=== PATIENT | male | born 1970 | race Caucasian/White ===

== ENCOUNTER 2019-03-14 09:28 | Observation (INO) | payer OTHER ==
[2019-03-14] MEDS ORDERED: Nitroglycerin 0.4 MG Tab.SL SL PRN (09:30)
[2019-03-14] MEDS ORDERED: Sodium Chloride 0.9% 10 ML Syringe FLUSH PRN (09:30)
[2019-03-14] MEDS ORDERED: Aspirin 81 MG Tab.Chew PO ONE (09:30)
[2019-03-14] MEDS ORDERED: Sodium Chloride 0.9% 2.5 ML Syringe FLUSH PRN (09:30)
[2019-03-14] MEDS ORDERED: Sodium Chloride 0.9% 1,000 ML IV ONE ×2 (09:30→09:45)
[2019-03-14] MEDS ORDERED: Ondansetron 4 MG/2 ML SDV IVPUSH ONE (09:38)
--- NOTE | 2019-03-14 09:38 | EDM.PDOC ---
ED HPI GENERAL MEDICAL PROBLEM - General Stated Complaint: CHEST PAIN Time Seen by Provider: 03/14/19 09:36 Source of Information: Reports: Patient History Limitations: Reports: No Limitations - History of Present Illness INITIAL COMMENTS - FREE TEXT/NARRATIVE: HISTORY AND PHYSICAL: History of present illness: Patient is a 48-year-old male who presents to the emergency room with complaints of chest pain and syncope. She states she was woken up out of sleep with sharp and severe chest pain/epigastric pain. He continued with this pain, felt diaphoretic, nauseated - he has assumed that this was heartburn. Shortly after he became very dizzy, fell down to his knees and had a syncopal event. Since that time he has been trying to "take it easy" but continues to feel generalized weakness and mild nausea. Upon arrival to the emergency room throughout the triage process he states he is beginning to feel lightheaded and near syncopal again. States his nausea has increased. Reports 2 years ago he was living in [facility] and at that time he did have a full cardiac workup as part of his "routine health maintenance". He believes they did a stress test and echocardiogram which were normal. He has no personal history of heart disease. Nonsmoker. Patient denies any fever, chills, headache, change in vision, neck pain or stiffness. Denies any back pain, shortness of breath or cough. Denies any vomiting, diarrhea, constipation or dysuria. Has not noted any blood in urine or stool. Patient has been eating and drinking appropriately. Review of systems: As per history of present illness and below otherwise all systems reviewed and negative. Past medical history: As per history of present illness and as reviewed below otherwise noncontributory. Surgical history: As per history of present illness and as reviewed below otherwise noncontributory. Social history: See social history for further information Family history: As per history of present illness and as reviewed below otherwise noncontributory. Physical exam: General: Well-developed and well-nourished 48-year-old male. Alert and oriented. Nontoxic appearing and in no acute distress. HEENT: Atraumatic, normocephalic, pupils equal and reactive bilaterally, negative for conjunctival pallor or scleral icterus, mucous membranes moist, TMs normal bilaterally, throat clear, neck supple, nontender, trachea midline. No drooling or trismus noted. No meningeal signs. No hot potato voice noted. Lungs: Clear to auscultation, breath sounds equal bilaterally, chest nontender. Heart: S1S2, regular rate and rhythm without overt murmur Abdomen: Soft, nondistended, nontender. Negative for masses. Negative for costovertebral tenderness. Pelvis is stable and nontender. Skin: Pale, intact, warm, dry. No lesions or rashes noted. Extremities: Atraumatic, moves all extremities per self without difficulty or deficits, negative for cords or calf pain. Neurovascular unremarkable. Neuro: Awake, alert, oriented. Cranial nerves II through XII unremarkable. Cerebellum unremarkable. Motor and sensory unremarkable throughout. Exam nonfocal. Notes: We'll patient was having an IV start he stated he began to feel near syncopal. Blood pressure did drop to the 60s over 40s. IV bolus was initiated. Repeat EKG was completed Blood pressure did come up, and is now within normal limits. He stated after lying flat and receiving IV fluids he did feel some improvement. Lab work is unremarkable. Head CT and chest x-ray show no acute findings. Vital signs remain stable. He continues to be chest pain-free. He states he feels better than he did or his near syncopal events, although still has generalized weakness. Dr Hi was consult did on this case and is agreeable to keeping him for observation. He is down here to evaluate the patient prior to being transferred up to the floor. Patient is aware and agreeable to plan of care. Denies any further questions or concerns at this time. 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 - Related Data Allergies Allergy/AdvReac Type Severity Reaction Status Date / Time No Known Allergies Allergy Verified 03/14/19 09:40 Home Meds: Home Meds . [No Known Home Meds] 03/14/19 [History] ED ROS GENERAL - Review of Systems Review Of Systems: ROS reveals no pertinent complaints other than HPI. ED EXAM, GENERAL - Physical Exam Exam: See Below (See dictation) Course - Vital Signs Last Recorded V/S: Last Vital Signs Temp 97.6 F 03/14/19 09:40 Pulse 87 03/14/19 10:55 Resp 18 03/14/19 10:55 BP 119/68 03/14/19 10:55 Pulse Ox 98 03/14/19 10:55 - Orders/Labs/Meds Orders: Active Orders 24 hr Category Date Time Status Admission Status [Patient Status] [ADT] Stat ADT 03/14/19 11:03 Ordered EKG Documentation Completion [RC] STAT Care 03/14/19 09:30 Active EKG Documentation Completion [RC] STAT Care 03/14/19 09:58 Active DRUG SCREEN, URINE [URCHEM] Stat Lab 03/14/19 10:53 Ordered ESR [SEDIMENTATION RATE AUTO] [HEME] Stat Lab 03/14/19 10:59 Ordered TSH [CHEM] Stat Lab 03/14/19 10:53 Ordered UA RFX EDUARD AND CULT IF INDIC [URIN] Stat Lab 03/14/19 10:53 Ordered Sodium Chloride 0.9% [Normal Saline] 1,000 ml Med 03/14/19 09:30 Active IV STAT Sodium Chloride 0.9% [Saline Flush] Med 03/14/19 09:30 Active 10 ml FLUSH ASDIRECTED PRN Sodium Chloride 0.9% [Saline Flush] Med 03/14/19 09:30 Active 2.5 ml FLUSH ASDIRECTED PRN Saline Lock Insert [OM.PC] Stat Oth 03/14/19 09:30 Ordered Medication Orders Sodium Chloride (Normal Saline) 1,000 mls @ 150 mls/hr IV STAT ONE Stop: 03/14/19 16:09 Last Admin: 03/14/19 09:43 Dose: 150 mls/hr Sodium Chloride (Saline Flush) 10 ml FLUSH ASDIRECTED PRN PRN Reason: Keep Vein Open Last Admin: 03/14/19 09:44 Dose: 10 ml Sodium Chloride (Saline Flush) 2.5 ml FLUSH ASDIRECTED PRN PRN Reason: Keep Vein Open Last Admin: 03/14/19 09:44 Dose: 2.5 ml Labs: Laboratory Tests 03/14/19 03/14/19 Range/Units 09:35 09:35 WBC 13.41 H (4.0-11.0) K/uL RBC 5.41 (4.50-5.90) M/uL Hgb 16.3 (13.0-17.0) g/dL Hct 49.1 (38.0-50.0) % MCV 90.8 (80.0-98.0) fL MCH 30.1 (27.0-32.0) pg MCHC 33.2 (31.0-37.0) g/dL RDW Std Deviation 44.2 (28.0-62.0) fl RDW Coeff of Darlene 13 (11.0-15.0) % Plt Count 229 (150-400) K/uL MPV 10.80 (7.40-12.00) fL Neut % (Auto) 92.1 H (48.0-80.0) % Lymph % (Auto) 2.1 L (16.0-40.0) % [place] % (Auto) 5.0 (0.0-15.0) % Eos % (Auto) 0.7 (0.0-7.0) % Baso % (Auto) 0.1 (0.0-1.5) % Neut # (Auto) 12.3 H (1.4-5.7) K/uL Lymph # (Auto) 0.3 L (0.6-2.4) K/uL [place] # (Auto) 0.7 (0.0-0.8) K/uL Eos # (Auto) 0.1 (0.0-0.7) K/uL Baso # (Auto) 0.0 (0.0-0.1) K/uL Nucleated RBC % 0.0 /100WBC Nucleated RBCs # 0 K/uL Sodium 141 (136-148) mmol/L Potassium 4.5 (3.5-5.1) mmol/L Chloride 105 (98-107) mmol/L Carbon Dioxide 29.4 (21.0-32.0) mmol/L BUN 18 (7.0-18.0) mg/dL Creatinine 1.0 (0.8-1.3) mg/dL Est Cr Clr Drug Dosing 110.91 mL/min Estimated GFR (MDRD) > 60.0 ml/min Glucose 96 (74-106) mg/dL Calcium 9.2 (8.5-10.1) mg/dL Total Bilirubin 0.7 (0.2-1.0) mg/dL AST 16 (15-37) IU/L ALT 27 (14-63) IU/L Alkaline Phosphatase 57 (46-116) U/L Troponin I < 0.050 (0.000-0.056) ng/mL Total Protein 7.5 (6.4-8.2) g/dL Albumin 4.3 (3.4-5.0) g/dL Globulin 3.2 (2.6-4.0) g/dL Albumin/Globulin Ratio 1.3 (0.9-1.6) Lipase 87 (73-393) U/L Meds: Medications Generic Name Dose Route Start Last Admin Trade Name Freq PRN Reason Stop Dose Admin Sodium Chloride 1,000 mls @ 150 mls/hr 03/14/19 09:30 03/14/19 09:43 Normal Saline IV 03/14/19 16:09 150 mls/hr STAT ONE Administration Sodium Chloride 10 ml 03/14/19 09:30 03/14/19 09:44 Saline Flush FLUSH 10 ml ASDIRECTED PRN Administration Keep Vein Open Sodium Chloride 2.5 ml 03/14/19 09:30 03/14/19 09:44 Saline Flush FLUSH 2.5 ml ASDIRECTED PRN Administration Keep Vein Open Discontinued Medications Generic Name Dose Route Start Last Admin Trade Name Freq PRN Reason Stop Dose Admin Aspirin 324 mg 03/14/19 09:30 03/14/19 09:43 Aspirin PO 03/14/19 09:31 324 mg ONETIME ONE Administration Sodium Chloride 1,000 mls @ 999 mls/hr 03/14/19 09:45 03/14/19 09:48 Normal Saline IV 03/14/19 10:45 999 mls/hr STAT ONE Administration Nitroglycerin 0.4 mg 03/14/19 09:30 Nitrostat SL Q5M PRN Chest Pain Ondansetron HCl 4 mg 03/14/19 09:38 03/14/19 09:43 Zofran IVPUSH 03/14/19 09:39 4 mg ONETIME ONE Administration Ondansetron HCl Confirm 03/14/19 09:39 03/14/19 09:44 Zofran Administered 03/14/19 09:40 Not Given Dose 4 mg .ROUTE .STK-MED ONE Departure - Departure Time of Disposition: 10:55 Disposition: Refer to Observation Clinical Impression: Chest pain, rule out acute myocardial infarction Syncope Qualifiers: Syncope type: unspecified Qualified Code(s): R55 - Syncope and collapse Referrals: PCP,Unknown [Primary Care Provider] - - My Orders Last 24 Hours: My Active Orders 03/14/19 09:30 EKG Documentation Completion [RC] STAT Sodium Chloride 0.9% [Normal Saline] 1,000 ml IV STAT Sodium Chloride 0.9% [Saline Flush] 10 ml FLUSH ASDIRECTED PRN Sodium Chloride 0.9% [Saline Flush] 2.5 ml FLUSH ASDIRECTED PRN Saline Lock Insert [OM.PC] Stat 03/14/19 09:58 EKG Documentation Completion [RC] STAT 03/14/19 10:53 DRUG SCREEN, URINE [URCHEM] Stat TSH [CHEM] Stat UA RFX EDUARD AND CULT IF INDIC [URIN] Stat 03/14/19 10:59 ESR [SEDIMENTATION RATE AUTO] [HEME] Stat 03/14/19 11:03 Admission Status [Patient Status] [ADT] Stat - Assessment/Plan Last 24 Hours: My Active Orders 03/14/19 09:30 EKG Documentation Completion [RC] STAT Sodium Chloride 0.9% [Normal Saline] 1,000 ml IV STAT Sodium Chloride 0.9% [Saline Flush] 10 ml FLUSH ASDIRECTED PRN Sodium Chloride 0.9% [Saline Flush] 2.5 ml FLUSH ASDIRECTED PRN Saline Lock Insert [OM.PC] Stat 03/14/19 09:58 EKG Documentation Completion [RC] STAT 03/14/19 10:53 DRUG SCREEN, URINE [URCHEM] Stat TSH [CHEM] Stat UA RFX EDUARD AND CULT IF INDIC [URIN] Stat 03/14/19 10:59 ESR [SEDIMENTATION RATE AUTO] [HEME] Stat 03/14/19 11:03 Admission Status [Patient Status] [ADT] Stat
[2019-03-14] MEDS ORDERED: Ondansetron 4 MG/2 ML SDV ONE (09:39)
[2019-03-14 10:40] LABS: CHLORIDE,CL 105 mmol/L (98-107); SODIUM,NA 141 mmol/L (136-148)
--- NOTE | 2019-03-14 10:40 | CT ---
EXAMINATION: Non contrast CT head. Coronal and sagittal reformats. HISTORY: Pain FINDINGS: No evidence of intra or extra axial hemorrhage, mass, midline shift, hydrocephalus or edema. No hypoattenuation changes in the major vascular territories to suggest acute infarct. No abnormal intracranial calcifications are detected. No evidence of substantial vascular calcifications. Paranasal sinuses and mastoid air cells are well aerated without substantial findings. Pituitary fossa appears unremarkable. Orbits and globes are symmetric. Calvarium is intact. No evidence of skull fracture. IMPRESSION: No acute intracranial findings.
--- NOTE | 2019-03-14 10:41 | CR ---
EXAMINATION: Portable chest radiograph. HISTORY: Chest pain. FINDINGS: The trachea is midline. The cardiomediastinal silhouette is within normal limits. No pulmonary infiltrates, effusions or pneumothorax. Mild hyperinflation and biapical scarring. Osseous structures appear unremarkable. IMPRESSION: No acute cardiopulmonary process.
[2019-03-14] MEDS ORDERED: Acetaminophen 325 MG Tab PO PRN (11:21)
[2019-03-14] MEDS ORDERED: Ondansetron 4 MG/2 ML SDV IVPUSH PRN (11:21)
--- NOTE | 2019-03-14 11:42 | PCM.HP ---
<Erika Mendez M - Last Filed: 03/14/19 12:36> H&P History of Present Illness - General Date of Service: 03/14/19 Admit Problem/Dx: Admission Diagnosis/Problem Admission Diagnosis/Problem Syncope Source of Information: Patient History Limitations: Reports: No Limitations - History of Present Illness Initial Comments - Free Text/Narative: This 48 year old male with no significant pmh presented to the ED today with complaints of epigastric and chest pain along with a syncopal episode. He reports he woke up at 0500 this morning with chest pain, that was sharp and burning, he felt it was like heartburn. He got up to the bathroom, had diarrhea. After he stood up he felt lightheaded, dizzy, diaphoretic. He felt as though he was going to pass out, gt to his knees and ended up passing out for a couple seconds and woke back up. He went back to bed and called around as to what he should do. He eventually decided to come to the ED to be evaluated. He reports he otherwise has been healthy lately. He ate some spicy sausage last night, which is unusual for him, he normally has a bland diet. No shortness of breath, no sinus congestion or upper respiratory illness. 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 He denies drinking energy drinks, has coffee in the morning and then drinks nearly a gallon of water a day. He reports mother has DM and no CAD, father is 86 and is otherwise healthy. He denies tobacco use, no alcohol use and no recreational drug use. He denies home medication usage. No heavy use of NSAIDS. In the ED mild leukocytosis noted, 13,410. BPM WNL. troponin negative. TS h0.61. EKG revealed mild ST elevation in all leads, consider pericarditis, ESR pending. CXR negative. Head CT negative as well. BP noted in the ED 80-119/50- 60s. HR 50-80s. He did become near syncopal in ED, noted to have BP 80/50s, given 2 L NS and BP improved and he is feeling better now, but slightly nauseated. He will be admitted for syncope and chest pain. No PCP in area - Related Data Allergies/Adverse Reactions: Allergies Allergy/AdvReac Type Severity Reaction Status Date / Time No Known Allergies Allergy Verified 03/14/19 09:40 Home Medications: Home Meds . [No Known Home Meds] 03/14/19 [History] Past Medical History HEENT History: Reports: None Cardiovascular History: Reports: None. Denies: CAD, High Cholesterol, Hypertension Respiratory History: Reports: None. Denies: Asthma, COPD Gastrointestinal History: Reports: None. Denies: Bowel Obstruction, Chronic Diarrhea, GERD Genitourinary History: Reports: None. Denies: Chronic Renal Insuffiency Musculoskeletal History: Reports: None Endocrine/Metabolic History: Reports: None. Denies: Diabetes, Type II, Obesity/ BMI 30+ - Infectious Disease History Infectious Disease History: Reports: None Social & Family History - Tobacco Use Smoking Status *Q: Never Smoker - Caffeine Use Caffeine Use: Reports: Coffee - Alcohol Use Alcohol Use History: No - Recreational Drug Use Recreational Drug Use: No H&P Review of Systems - Review of Systems: Review Of Systems: See Below General: Reports: Weakness. Denies: Fever, Chills, Malaise, Fatigue HEENT: Reports: No Symptoms. Denies: Headaches, Sinus Congestion, Sore Throat, Vertigo Pulmonary: Reports: No Symptoms. Denies: Shortness of Breath Cardiovascular: Reports: Lightheadedness, Syncope. Denies: Chest Pain, Orthopnea, Edema Gastrointestinal: Reports: Diarrhea, Nausea. Denies: Abdominal Pain, Black Stool, Bloody Stool, Distension, Melena, Vomiting Genitourinary: Reports: No Symptoms. Denies: Dysuria, Frequency, Burning Musculoskeletal: Reports: No Symptoms Skin: Reports: No Symptoms Psychiatric: Reports: No Symptoms Neurological: Reports: No Symptoms Hematologic/Lymphatic: Reports: No Symptoms Immunologic: Reports: No Symptoms Exam - Exam Exam: See Below - Vital Signs Vital Signs: Last Vital Signs Temp 97.6 F 03/14/19 09:40 Pulse 87 03/14/19 10:55 Resp 18 03/14/19 10:55 BP 119/68 03/14/19 10:55 Pulse Ox 98 03/14/19 10:55 Weight: 185 kg - Exam General: Alert, Oriented, Cooperative Neck: Supple, Trachea Midline Lungs: Clear to Auscultation, Normal Respiratory Effort Cardiovascular: Regular Rate, Regular Rhythm GI/Abdominal Exam: Normal Bowel Sounds, Soft, Non-Tender, No Mass, Other (noted to be frequently swallowing as though nauseated, reports he feels nauseated.) Back Exam: Normal Inspection, Full Range of Motion Extremities: Normal Inspection, Normal Range of Motion, Non-Tender Neuro Extensive - Mental Status: Alert, Oriented x3 Neuro Extensive - Motor, Sensory, Reflexes: CN II-XII Intact Psychiatric: Alert, Normal Affect, Normal Mood - Patient Data Lab Results Last 24 hrs: Laboratory Results - last 24 hr 03/14/19 03/14/19 03/14/19 Range/Units 09:35 09:35 09:35 WBC 13.41 H (4.0-11.0) K/uL RBC 5.41 (4.50-5.90) M/uL Hgb 16.3 (13.0-17.0) g/dL Hct 49.1 (38.0-50.0) % MCV 90.8 (80.0-98.0) fL MCH 30.1 (27.0-32.0) pg MCHC 33.2 (31.0-37.0) g/dL RDW Std Deviation 44.2 (28.0-62.0) fl RDW Coeff of Darlene 13 (11.0-15.0) % Plt Count 229 (150-400) K/uL MPV 10.80 (7.40-12.00) fL Neut % (Auto) 92.1 H (48.0-80.0) % Lymph % (Auto) 2.1 L (16.0-40.0) % Gove % (Auto) 5.0 (0.0-15.0) % Eos % (Auto) 0.7 (0.0-7.0) % Baso % (Auto) 0.1 (0.0-1.5) % Neut # (Auto) 12.3 H (1.4-5.7) K/uL Lymph # (Auto) 0.3 L (0.6-2.4) K/uL Gove # (Auto) 0.7 (0.0-0.8) K/uL Eos # (Auto) 0.1 (0.0-0.7) K/uL Baso # (Auto) 0.0 (0.0-0.1) K/uL Nucleated RBC % 0.0 /100WBC Nucleated RBCs # 0 K/uL Sodium 141 (136-148) mmol/L Potassium 4.5 (3.5-5.1) mmol/L Chloride 105 (98-107) mmol/L Carbon Dioxide 29.4 (21.0-32.0) mmol/L BUN 18 (7.0-18.0) mg/dL Creatinine 1.0 (0.8-1.3) mg/dL Est Cr Clr Drug Dosing 110.91 mL/min Estimated GFR (MDRD) > 60.0 ml/min Glucose 96 (74-106) mg/dL Calcium 9.2 (8.5-10.1) mg/dL Total Bilirubin 0.7 (0.2-1.0) mg/dL AST 16 (15-37) IU/L ALT 27 (14-63) IU/L Alkaline Phosphatase 57 (46-116) U/L Troponin I < 0.050 (0.000-0.056) ng/mL Total Protein 7.5 (6.4-8.2) g/dL Albumin 4.3 (3.4-5.0) g/dL Globulin 3.2 (2.6-4.0) g/dL Albumin/Globulin Ratio 1.3 (0.9-1.6) Lipase 87 (73-393) U/L TSH 3rd Generation 0.61 (0.36-3.74) uIU/mL Result Diagrams: 03/14/19 09:35 03/14/19 09:35 EKG INTERPRETATION Rhythm: NSR P-Wave: Present QRS: Normal ST-T: Elevated (all leads) QT: Normal - Problem List (1) Chest pain, rule out acute myocardial infarction SNOMED Code(s): 41906565 ICD Code: R07.9 - CHEST PAIN, UNSPECIFIED Status: Acute Current Visit: Yes (2) Syncope SNOMED Code(s): 679055139 ICD Code: R55 - SYNCOPE AND COLLAPSE Status: Acute Current Visit: Yes Qualifiers: Syncope type: unspecified Qualified Code(s): R55 - Syncope and collapse Problem List Initiated/Reviewed/Updated: Yes Orders Last 24hrs: Active Orders 24 hr Category Date Time Status Admission Status [Patient Status] [ADT] Stat ADT 03/14/19 11:03 Active EKG Documentation Completion [RC] STAT Care 03/14/19 09:30 Active EKG Documentation Completion [RC] STAT Care 03/14/19 09:58 Active Intake and Output [RC] QSHIFT Care 03/14/19 11:22 Active Orthostatic Vital Signs [RC] ASDIRECTED Care 03/14/19 11:24 Active Oxygen Therapy [RC] PRN Care 03/14/19 11:22 Active Telemetry Monitoring [Cardiac Monitoring] [RC] . Care 03/14/19 11:25 Active DIRECTED Up With Assistance [RC] ASDIRECTED Care 03/14/19 11:21 Active VTE/DVT Education [RC] PER UNIT ROUTINE Care 03/14/19 11:22 Active Vital Signs [RC] Q4H Care 03/14/19 11:22 Active Heart Healthy Diet [DIET] Diet 03/14/19 Lunch Active BASIC METABOLIC PANEL,BMP [CHEM] AM Lab 03/15/19 05:11 Ordered CBC WITH AUTO DIFF [HEME] AM Lab 03/15/19 05:11 Ordered CDIFF TOX A+B [OP] Routine Lab 03/14/19 11:23 Ordered CULTURE STOOL + CAMPY+SHIGATOX [RM] Routine Lab 03/14/19 11:23 Ordered DRUG SCREEN, URINE [URCHEM] Stat Lab 03/14/19 10:53 Ordered ESR [SEDIMENTATION RATE AUTO] [HEME] Stat Lab 03/14/19 10:59 Ordered GLYCOSYLATED HEMOGLOBIN,HGBA1C [CHEM] Routine Lab 03/14/19 09:35 Received LIPID PANEL [CHEM] AM Lab 03/15/19 05:11 Ordered TROPONIN I [CHEM] Q6H Lab 03/14/19 15:30 Ordered TROPONIN I [CHEM] Q6H Lab 03/14/19 21:30 Ordered UA RFX EDUARD AND CULT IF INDIC [URIN] Stat Lab 03/14/19 10:53 Ordered Acetaminophen [Tylenol] Med 03/14/19 11:21 Active 650 mg PO Q4H PRN Alum Hydrox/Mag Hydrox/Simeth [Mag-Al Plus] 15 ml Med 03/14/19 11:21 Ordered Lidocaine 2% [Xylocaine 2% Viscous] 5 ml PO ONETIME Enoxaparin [Lovenox] Med 03/14/19 11:30 Active 40 mg SUBCUT Q24H Ondansetron [Zofran] Med 03/14/19 11:21 Ordered 4 mg IVPUSH Q4H PRN Pantoprazole [ProTONIX IV] 40 mg Med 03/14/19 11:30 Ordered Sodium Chloride 0.9% [Normal Saline] 100 ml IVPUSH Q24H Sodium Chloride 0.9% [Normal Saline] 1,000 ml Med 03/14/19 11:30 Ordered IV ASDIRECTED Sodium Chloride 0.9% [Normal Saline] 1,000 ml Med 03/14/19 09:30 Active IV STAT Sodium Chloride 0.9% [Saline Flush] Med 03/14/19 09:30 Active 10 ml FLUSH ASDIRECTED PRN Sodium Chloride 0.9% [Saline Flush] Med 03/14/19 09:30 Active 2.5 ml FLUSH ASDIRECTED PRN Isolation [COMM] Stat Ot 03/14/19 11:24 Ordered Saline Lock Insert [OM.PC] Stat Ot 03/14/19 09:30 Ordered Resuscitation Status Routine Resus Stat 03/14/19 11:21 Ordered Medication Orders Acetaminophen (Tylenol) 650 mg PO Q4H PRN PRN Reason: Pain (mild 1-3) Al Hydroxide/Mg Hydroxide 15 (ml/ Lidocaine HCl 5 ml) 0 ml PO ONETIME ONE Stop: 03/14/19 11:22 Enoxaparin Sodium (Lovenox) 40 mg SUBCUT Q24H [facility]ISCO Sodium Chloride (Normal Saline) 1,000 mls @ 150 mls/hr IV STAT ONE Stop: 03/14/19 16:09 Last Infusion: 03/14/19 09:45 Dose: 999 mls/hr Admin: 03/14/19 09:43 Dose: 150 mls/hr Pantoprazole Sodium 40 mg/ (Sodium Chloride) 100 mls @ 10 mls/hr IVPUSH Q24H [facility] Sodium Chloride (Normal Saline) 1,000 mls @ 150 mls/hr IV ASDIRECTED [facility]CO Ondansetron HCl (Zofran) 4 mg IVPUSH Q4H PRN PRN Reason: Nausea Sodium Chloride (Saline Flush) 10 ml FLUSH ASDIRECTED PRN PRN Reason: Keep Vein Open Last Admin: 03/14/19 09:44 Dose: 10 ml Sodium Chloride (Saline Flush) 2.5 ml FLUSH ASDIRECTED PRN PRN Reason: Keep Vein Open Last Admin: 03/14/19 09:44 Dose: 2.5 ml Assessment/Plan Comment:: This 48 year old male admitted with syncope and chest pain 1. Syncope: suspect vasovagal reflex syncope or Orthostatic hypotension. Monitor Orthostatic BPs. Reports his BP is normally "low". Monitor on telemetry for cardiac causes of syncope. Continue IVFs for now. recheck labs in am, leukocytosis may be related to dehydration. 2. Chest pain: Telemetry. trend troponins. Check A1c and Lipid panel. Low risk. Give Protonix and GI cocktail monitor. Outpatient stress test to be ordered on discharge. ESR not elevated. 3. Diarrhea: stool studies and hemoccult. VTE prophylaxis: Dispo: 1 day <Mayito Hi - Last Filed: 03/14/19 16:29> H&P History of Present Illness - General Admit Problem/Dx: Admission Diagnosis/Problem Admission Diagnosis/Problem Syncope I have examined the patient independently of Erika Mendez CNP. I have discussed the case with her. I have reviewed and agree with the examination and plan as outlined by her. Please see orders. Exam - Vital Signs Vital Signs: Last Vital Signs Temp 37.0 C 03/14/19 12:00 Pulse 84 03/14/19 12:00 Resp 18 03/14/19 12:00 BP 119/68 03/14/19 10:55 Pulse Ox 98 03/14/19 12:00 Orthostatic Blood Pressure [ 114/67 Standing] Orthostatic Blood Pressure [ 116/69 Supine] Orthostatic Blood Pressure [ 112/73 Sitting] - Patient Data Lab Results Last 24 hrs: Laboratory Results - last 24 hr 03/14/19 03/14/19 03/14/19 Range/Units 09:35 09:35 09:35 WBC 13.41 H (4.0-11.0) K/uL RBC 5.41 (4.50-5.90) M/uL Hgb 16.3 (13.0-17.0) g/dL Hct 49.1 (38.0-50.0) % MCV 90.8 (80.0-98.0) fL MCH 30.1 (27.0-32.0) pg MCHC 33.2 (31.0-37.0) g/dL RDW Std Deviation 44.2 (28.0-62.0) fl RDW Coeff of Darlene 13 (11.0-15.0) % Plt Count 229 (150-400) K/uL MPV 10.80 (7.40-12.00) fL Neut % (Auto) 92.1 H (48.0-80.0) % Lymph % (Auto) 2.1 L (16.0-40.0) % Gove % (Auto) 5.0 (0.0-15.0) % Eos % (Auto) 0.7 (0.0-7.0) % Baso % (Auto) 0.1 (0.0-1.5) % Neut # (Auto) 12.3 H (1.4-5.7) K/uL Lymph # (Auto) 0.3 L (0.6-2.4) K/uL Gove # (Auto) 0.7 (0.0-0.8) K/uL Eos # (Auto) 0.1 (0.0-0.7) K/uL Baso # (Auto) 0.0 (0.0-0.1) K/uL Nucleated RBC % 0.0 /100WBC Nucleated RBCs # 0 K/uL ESR (0-14) mm/hr Sodium 141 (136-148) mmol/L Potassium 4.5 (3.5-5.1) mmol/L Chloride 105 (98-107) mmol/L Carbon Dioxide 29.4 (21.0-32.0) mmol/L BUN 18 (7.0-18.0) mg/dL Creatinine 1.0 (0.8-1.3) mg/dL Est Cr Clr Drug Dosing 110.91 mL/min Estimated GFR (MDRD) > 60.0 ml/min Glucose 96 (74-106) mg/dL Hemoglobin A1c (4.5-6.2) % Calcium 9.2 (8.5-10.1) mg/dL Total Bilirubin 0.7 (0.2-1.0) mg/dL AST 16 (15-37) IU/L ALT 27 (14-63) IU/L Alkaline Phosphatase 57 (46-116) U/L Troponin I < 0.050 (0.000-0.056) ng/mL Total Protein 7.5 (6.4-8.2) g/dL Albumin 4.3 (3.4-5.0) g/dL Globulin 3.2 (2.6-4.0) g/dL Albumin/Globulin Ratio 1.3 (0.9-1.6) Lipase 87 (73-393) U/L TSH 3rd Generation 0.61 (0.36-3.74) uIU/mL Urine Color Urine Appearance Urine pH (5.0-8.0) Ur Specific [place] (1.001-1.035) Urine Protein (NEGATIVE) mg/dL Urine Glucose (UA) (NEGATIVE) mg/dL Urine Ketones (NEGATIVE) mg/dL Urine Occult Blood (NEGATIVE) Urine Nitrite (NEGATIVE) Urine Bilirubin (NEGATIVE) Urine Urobilinogen (<2.0) EU/dL Ur Leukocyte Esterase (NEGATIVE) Urine Opiates Screen (NEGATIVE) Ur Oxycodone Screen (NEGATIVE) Urine Methadone Screen (NEGATIVE) Ur Barbiturates Screen (NEGATIVE) Ur Phencyclidine Scrn (NEGATIVE) Ur Amphetamine Screen (NEGATIVE) U Methamphetamines Scrn (NEGATIVE) U Benzodiazepines Scrn (NEGATIVE) U Cocaine Metab Screen (NEGATIVE) U Marijuana (THC) Screen (NEGATIVE) 03/14/19 03/14/19 03/14/19 Range/Units 09:35 09:35 13:05 WBC (4.0-11.0) K/uL RBC (4.50-5.90) M/uL Hgb (13.0-17.0) g/dL Hct (38.0-50.0) % MCV (80.0-98.0) fL MCH (27.0-32.0) pg MCHC (31.0-37.0) g/dL RDW Std Deviation (28.0-62.0) fl RDW Coeff of Darlene (11.0-15.0) % Plt Count (150-400) K/uL MPV (7.40-12.00) fL Neut % (Auto) (48.0-80.0) % Lymph % (Auto) (16.0-40.0) % Gove % (Auto) (0.0-15.0) % Eos % (Auto) (0.0-7.0) % Baso % (Auto) (0.0-1.5) % Neut # (Auto) (1.4-5.7) K/uL Lymph # (Auto) (0.6-2.4) K/uL Gove # (Auto) (0.0-0.8) K/uL Eos # (Auto) (0.0-0.7) K/uL Baso # (Auto) (0.0-0.1) K/uL Nucleated RBC % /100WBC Nucleated RBCs # K/uL ESR 1 (0-14) mm/hr Sodium (136-148) mmol/L Potassium (3.5-5.1) mmol/L Chloride (98-107) mmol/L Carbon Dioxide (21.0-32.0) mmol/L BUN (7.0-18.0) mg/dL Creatinine (0.8-1.3) mg/dL Est Cr Clr Drug Dosing mL/min Estimated GFR (MDRD) ml/min Glucose (74-106) mg/dL Hemoglobin A1c 5.7 (4.5-6.2) % Calcium (8.5-10.1) mg/dL Total Bilirubin (0.2-1.0) mg/dL AST (15-37) IU/L ALT (14-63) IU/L Alkaline Phosphatase (46-116) U/L Troponin I (0.000-0.056) ng/mL Total Protein (6.4-8.2) g/dL Albumin (3.4-5.0) g/dL Globulin (2.6-4.0) g/dL Albumin/Globulin Ratio (0.9-1.6) Lipase (73-393) U/L TSH 3rd Generation (0.36-3.74) uIU/mL Urine Color YELLOW Urine Appearance CLEAR Urine pH 6.5 (5.0-8.0) Ur Specific [place] 1.020 (1.001-1.035) Urine Protein NEGATIVE (NEGATIVE) mg/dL Urine Glucose (UA) NEGATIVE (NEGATIVE) mg/dL Urine Ketones 15 H (NEGATIVE) mg/dL Urine Occult Blood NEGATIVE (NEGATIVE) Urine Nitrite NEGATIVE (NEGATIVE) Urine Bilirubin NEGATIVE (NEGATIVE) Urine Urobilinogen 0.2 (<2.0) EU/dL Ur Leukocyte Esterase NEGATIVE (NEGATIVE) Urine Opiates Screen (NEGATIVE) Ur Oxycodone Screen (NEGATIVE) Urine Methadone Screen (NEGATIVE) Ur Barbiturates Screen (NEGATIVE) Ur Phencyclidine Scrn (NEGATIVE) Ur Amphetamine Screen (NEGATIVE) U Methamphetamines Scrn (NEGATIVE) U Benzodiazepines Scrn (NEGATIVE) U Cocaine Metab Screen (NEGATIVE) U Marijuana (THC) Screen (NEGATIVE) 03/14/19 03/14/19 Range/Units 13:05 14:32 WBC (4.0-11.0) K/uL RBC (4.50-5.90) M/uL Hgb (13.0-17.0) g/dL Hct (38.0-50.0) % MCV (80.0-98.0) fL MCH (27.0-32.0) pg MCHC (31.0-37.0) g/dL RDW Std Deviation (28.0-62.0) fl RDW Coeff of Darlene (11.0-15.0) % Plt Count (150-400) K/uL MPV (7.40-12.00) fL Neut % (Auto) (48.0-80.0) % Lymph % (Auto) (16.0-40.0) % Gove % (Auto) (0.0-15.0) % Eos % (Auto) (0.0-7.0) % Baso % (Auto) (0.0-1.5) % Neut # (Auto) (1.4-5.7) K/uL Lymph # (Auto) (0.6-2.4) K/uL Gove # (Auto) (0.0-0.8) K/uL Eos # (Auto) (0.0-0.7) K/uL Baso # (Auto) (0.0-0.1) K/uL Nucleated RBC % /100WBC Nucleated RBCs # K/uL ESR (0-14) mm/hr Sodium (136-148) mmol/L Potassium (3.5-5.1) mmol/L Chloride (98-107) mmol/L Carbon Dioxide (21.0-32.0) mmol/L BUN (7.0-18.0) mg/dL Creatinine (0.8-1.3) mg/dL Est Cr Clr Drug Dosing mL/min Estimated GFR (MDRD) ml/min Glucose (74-106) mg/dL Hemoglobin A1c (4.5-6.2) % Calcium (8.5-10.1) mg/dL Total Bilirubin (0.2-1.0) mg/dL AST (15-37) IU/L ALT (14-63) IU/L Alkaline Phosphatase (46-116) U/L Troponin I < 0.050 (0.000-0.056) ng/mL Total Protein (6.4-8.2) g/dL Albumin (3.4-5.0) g/dL Globulin (2.6-4.0) g/dL Albumin/Globulin Ratio (0.9-1.6) Lipase (73-393) U/L TSH 3rd Generation (0.36-3.74) uIU/mL Urine Color Urine Appearance Urine pH (5.0-8.0) Ur Specific [place] (1.001-1.035) Urine Protein (NEGATIVE) mg/dL Urine Glucose (UA) (NEGATIVE) mg/dL Urine Ketones (NEGATIVE) mg/dL Urine Occult Blood (NEGATIVE) Urine Nitrite (NEGATIVE) Urine Bilirubin (NEGATIVE) Urine Urobilinogen (<2.0) EU/dL Ur Leukocyte Esterase (NEGATIVE) Urine Opiates Screen NEGATIVE (NEGATIVE) Ur Oxycodone Screen NEGATIVE (NEGATIVE) Urine Methadone Screen NEGATIVE (NEGATIVE) Ur Barbiturates Screen NEGATIVE (NEGATIVE) Ur Phencyclidine Scrn NEGATIVE (NEGATIVE) Ur Amphetamine Screen NEGATIVE (NEGATIVE) U Methamphetamines Scrn NEGATIVE (NEGATIVE) U Benzodiazepines Scrn NEGATIVE (NEGATIVE) U Cocaine Metab Screen NEGATIVE (NEGATIVE) U Marijuana (THC) Screen NEGATIVE (NEGATIVE) Result Diagrams: 03/14/19 09:35 03/14/19 09:35 Orders Last 24hrs: Active Orders 24 hr Category Date Time Status Admission Status [Patient Status] [ADT] Stat ADT 03/14/19 11:03 Active EKG Documentation Completion [RC] STAT Care 03/14/19 09:30 Active EKG Documentation Completion [RC] STAT Care 03/14/19 09:58 Active Intake and Output [RC] Q12H Care 03/14/19 11:22 Active Orthostatic Vital Signs [RC] ASDIRECTED Care 03/14/19 11:24 Active Oxygen Therapy [RC] PRN Care 03/14/19 11:22 Active Telemetry Monitoring [Cardiac Monitoring] [RC] Q8H Care 03/14/19 11:25 Active Up With Assistance [RC] ASDIRECTED Care 03/14/19 11:21 Active VTE/DVT Education [RC] PER UNIT ROUTINE Care 03/14/19 11:22 Active Vital Signs [RC] Q4H Care 03/14/19 11:22 Active Heart Healthy Diet [DIET] Diet 03/14/19 Lunch Active BASIC METABOLIC PANEL,BMP [CHEM] AM Lab 03/15/19 05:11 Ordered CBC WITH AUTO DIFF [HEME] AM Lab 03/15/19 05:11 Ordered CDIFF TOX A+B [OP] Routine Lab 03/14/19 11:23 Ordered CULTURE STOOL + CAMPY+SHIGATOX [RM] Routine Lab 03/14/19 11:23 Ordered Hemoccult [OCCULT BLOOD DIAGNOSTIC] [OP] Routine Lab 03/14/19 11:58 Ordered LIPID PANEL [CHEM] AM Lab 03/15/19 05:11 Ordered TROPONIN I [CHEM] Q6H Lab 03/14/19 21:30 Ordered Acetaminophen [Tylenol] Med 03/14/19 11:21 Active 650 mg PO Q4H PRN Enoxaparin [Lovenox] Med 03/14/19 11:30 Active 40 mg SUBCUT Q24H Ondansetron [Zofran] Med 03/14/19 11:21 Active 4 mg IVPUSH Q4H PRN Pantoprazole [ProTONIX IV] 40 mg Med 03/14/19 11:45 Active Sodium Chloride 0.9% [Normal Saline] 10 ml IVPUSH Q24H Sodium Chloride 0.9% [Normal Saline] 1,000 ml Med 03/14/19 11:30 Active IV ASDIRECTED Sodium Chloride 0.9% [Saline Flush] Med 03/14/19 09:30 Active 10 ml FLUSH ASDIRECTED PRN Sodium Chloride 0.9% [Saline Flush] Med 03/14/19 09:30 Active 2.5 ml FLUSH ASDIRECTED PRN Isolation [COMM] Stat Oth 03/14/19 11:24 Ordered Saline Lock Insert [OM.PC] Stat Oth 03/14/19 09:30 Ordered Resuscitation Status Routine Resus Stat 03/14/19 11:21 Ordered Medication Orders Acetaminophen (Tylenol) 650 mg PO Q4H PRN PRN Reason: Pain (mild 1-3) Enoxaparin Sodium (Lovenox) 40 mg SUBCUT Q24H [facility] Last Admin: 03/14/19 12:52 Dose: 40 mg Pantoprazole Sodium 40 mg/ (Sodium Chloride) 10 mls @ 200 mls/hr IVPUSH Q24H [facility] Last Admin: 03/14/19 12:42 Dose: 200 mls/hr Sodium Chloride (Normal Saline) 1,000 mls @ 150 mls/hr IV ASDIRECTED CISCO Last Admin: 03/14/19 12:41 Dose: 150 mls/hr Ondansetron HCl (Zofran) 4 mg IVPUSH Q4H PRN PRN Reason: Nausea Sodium Chloride (Saline Flush) 10 ml FLUSH ASDIRECTED PRN PRN Reason: Keep Vein Open Last Admin: 03/14/19 09:44 Dose: 10 ml Sodium Chloride (Saline Flush) 2.5 ml FLUSH ASDIRECTED PRN PRN Reason: Keep Vein Open Last Admin: 03/14/19 09:44 Dose: 2.5 ml
[2019-03-14] MEDS ORDERED: Alum Hydrox/Mag Hydrox/Simeth 15 ML, Lidocaine 2% 5 ML PO ONE ×4 (11:45→12:05)
[2019-03-14 11:46] LABS: HEMOGLOBIN A1C 5.7 % (4.5-6.2)
[2019-03-14] MEDS: Sodium Chloride 0.9% 1,000 ML IV SCH ×2 (12:41→20:28)
[2019-03-14] MEDS: Pantoprazole 40 MG in Sodium Chloride 0.9% 10 ML IVPUSH SCH (12:42)
[2019-03-14] MEDS: Enoxaparin 40 MG/0.4 ML Syringe SUBCUT SCH (12:52)
[2019-03-15 05:46] LABS: CHLORIDE,CL 108 mmol/L (98-107); SODIUM,NA 140 mmol/L (136-148)
[2019-03-15] MEDS: Sodium Chloride 0.9% 1,000 ML IV SCH ×2 (07:46→09:39)
[2019-03-15] MEDS ORDERED: Sodium Chloride 0.9% 1,000 ML IV ONE (08:48)
[2019-03-15] MEDS: Pantoprazole 40 MG in Sodium Chloride 0.9% 10 ML IVPUSH SCH (12:01)
[2019-03-15] MEDS: Enoxaparin 40 MG/0.4 ML Syringe SUBCUT SCH (12:04)
--- NOTE | 2019-03-15 12:16 | PCM.DCSUM1 ---
<Erika Mendez M - Last Filed: 03/15/19 12:50> Discharge Summary - Hospital Course Brief History: This 48 year old male with no significant pmh presented to the ED today with complaints of epigastric and chest pain along with a syncopal episode. He reports he woke up at 0500 this morning with chest pain, that was sharp and burning, he felt it was like heartburn. He got up to the bathroom, had diarrhea. After he stood up he felt lightheaded, dizzy, diaphoretic. He felt as though he was going to pass out, gt to his knees and ended up passing out for a couple seconds and woke back up. He went back to bed and called around as to what he should do. He eventually decided to come to the ED to be evaluated. He reports he otherwise has been healthy lately. He ate some spicy sausage last night, which is unusual for him, he normally has a bland diet. No shortness of breath, no sinus congestion or upper respiratory illness. 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 He denies drinking energy drinks, has coffee in the morning and then drinks nearly a gallon of water a day. He reports mother has DM and no CAD, father is 86 and is otherwise healthy. He denies tobacco use, no alcohol use and no recreational drug use. He denies home medication usage. No heavy use of NSAIDS. In the ED mild leukocytosis noted, 13,410. BPM WNL. troponin negative. TS h0.61. EKG revealed mild ST elevation in all leads, consider pericarditis, ESR pending. CXR negative. Head CT negative as well. BP noted in the ED 80-119/ 50-60s. HR 50-80s. He did become near syncopal in ED, noted to have BP 80/50s, given 2 L NS and BP improved and he is feeling better now, but slightly nauseated. He will be admitted for syncope and chest pain. No PCP in area Diagnosis: Stroke: No - Discharge Data Discharge Date: 03/15/19 Discharge Disposition: Home, Self-Care 01 Condition: Good - Discharge Diagnosis/Problem(s) (1) Chest pain, rule out acute myocardial infarction SNOMED Code(s): 28611218 ICD Code: R07.9 - CHEST PAIN, UNSPECIFIED Status: Acute (2) Syncope SNOMED Code(s): 849396352 ICD Code: R55 - SYNCOPE AND COLLAPSE Status: Acute Qualifiers: Syncope type: unspecified Qualified Code(s): R55 - Syncope and collapse - Patient Instructions Diet: Usual Diet as Tolerated, Drink 8-10+ Glasses/Day Activity: No Strenuous Activities, Rest and Relax Today Showering/Bathing: May Shower Notify Provider of: Fever, Increased Pain, Swelling and Redness, Drainage, Nausea and/or Vomiting - Discharge Plan *PRESCRIPTION DRUG MONITORING PROGRAM REVIEWED*: Not Applicable *COPY OF PRESCRIPTION DRUG MONITORING REPORT IN PATIENT KAITE: Not Applicable Home Medications: Home Meds . [No Known Home Meds] 03/14/19 [History] Oxygen Therapy Mode: Room Air Patient Handouts: Orthostatic Hypotension, Nonspecific Chest Pain, [id number] , Syncope, [id number] Referrals: Miguel Bhagat MD [Resident] - 03/25/19 2:30 pm - Discharge Summary/Plan Comment DC Time >30 min.: No Discharge Summary/Plan Comment: Admitting Diagnoses Chest pain Syncope Hypotension Discharge Diagnoses: Chest pain- resolved Orthostatic hypotension with syncope Sean was admitted and monitored overnight with concerns of chest pain and syncope at home. This morning he reports feeling better, no further chest pain and no further lightheadedness or dizziness. Troponins all negative, ESR negative. No arrhythmias noted on telemetry and no ST elevation. He remained orthostatic this morning, he refused IVFs overnight. This morning he was given 1 L bolus and orthostatic hypotension resolved. He was ambulating in hallway well with no concerns. Syncope likely related to some dehydration and orthostatic hypotension. He was encouraged to drink plenty of liquids especially when working. He will be sent home today. Stress test to be scheduled as outpatient. He is to limit strenuous activity and may return to work Thursday. He has no other concerns. He is to follow up with PCP in 1 week and return to ED or clinic if concerns should arise. - General Info Date of Service: 03/15/19 Admission Dx/Problem (Free Text: Admission Diagnosis/Problem Admission Diagnosis/Problem Syncope Subjective Update: Feeling improved today. No chest pain no further lightheadedness or dizziness and no syncope. Functional Status: Reports: Pain Controlled, Tolerating Diet, Ambulating, Urinating - Review of Systems General: Reports: No Symptoms. Denies: Fever, Weakness, Fatigue, Malaise HEENT: Reports: No Symptoms. Denies: Headaches, Sore Throat, Visual Changes Pulmonary: Reports: No Symptoms. Denies: Shortness of Breath, Cough, Sputum Cardiovascular: Reports: No Symptoms. Denies: Chest Pain, Edema Gastrointestinal: Reports: No Symptoms. Denies: Abdominal Pain, Nausea, Vomiting Genitourinary: Reports: No Symptoms. Denies: Dysuria, Frequency Musculoskeletal: Reports: No Symptoms Skin: Reports: No Symptoms Neurological: Reports: No Symptoms Psychiatric: Reports: No Symptoms - Patient Data Vitals - Most Recent: Last Vital Signs Temp 98.1 F 03/15/19 07:57 Pulse 87 03/15/19 07:57 Resp 16 03/15/19 07:57 BP 98/59 L 03/15/19 07:57 Pulse Ox 97 03/15/19 11:22 Orthostatic Blood Pressure [ 103/65 Standing] Orthostatic Blood Pressure [ 108/65 Supine] Orthostatic Blood Pressure [ 107/67 Sitting] Weight - Most Recent: 185 kg I&O - Last 24 hours: Intake & Output 03/14/19 03/15/19 03/15/19 22:59 06:59 14:59 Intake Total 666 1200 Output Total 400 550 Balance 266 650 Lab Results - Last 24 hrs: Laboratory Results - last 24 hr 03/14/19 03/14/19 03/14/19 Range/Units 13:05 13:05 14:32 WBC (4.0-11.0) K/uL RBC (4.50-5.90) M/uL Hgb (13.0-17.0) g/dL Hct (38.0-50.0) % MCV (80.0-98.0) fL MCH (27.0-32.0) pg MCHC (31.0-37.0) g/dL RDW Std Deviation (28.0-62.0) fl RDW Coeff of Darlene (11.0-15.0) % Plt Count (150-400) K/uL MPV (7.40-12.00) fL Neut % (Auto) (48.0-80.0) % Lymph % (Auto) (16.0-40.0) % [place] % (Auto) (0.0-15.0) % Eos % (Auto) (0.0-7.0) % Baso % (Auto) (0.0-1.5) % Neut # (Auto) (1.4-5.7) K/uL Lymph # (Auto) (0.6-2.4) K/uL [place] # (Auto) (0.0-0.8) K/uL Eos # (Auto) (0.0-0.7) K/uL Baso # (Auto) (0.0-0.1) K/uL Nucleated RBC % /100WBC Nucleated RBCs # K/uL Sodium (136-148) mmol/L Potassium (3.5-5.1) mmol/L Chloride (98-107) mmol/L Carbon Dioxide (21.0-32.0) mmol/L BUN (7.0-18.0) mg/dL Creatinine (0.8-1.3) mg/dL Est Cr Clr Drug Dosing mL/min Estimated GFR (MDRD) ml/min Glucose (74-106) mg/dL Calcium (8.5-10.1) mg/dL Troponin I < 0.050 (0.000-0.056) ng/mL Triglycerides (0-200) mg/dL Cholesterol (50-200) mg/dL LDL Cholesterol, Calc (60-180) mg/dL VLDL Cholesterol (5-55) mg/dL HDL Cholesterol (40-60) mg/dL Cholesterol/HDL Ratio (3.3-6.0) Urine Color YELLOW Urine Appearance CLEAR Urine pH 6.5 (5.0-8.0) Ur Specific [place] 1.020 (1.001-1.035) Urine Protein NEGATIVE (NEGATIVE) mg/dL Urine Glucose (UA) NEGATIVE (NEGATIVE) mg/dL Urine Ketones 15 H (NEGATIVE) mg/dL Urine Occult Blood NEGATIVE (NEGATIVE) Urine Nitrite NEGATIVE (NEGATIVE) Urine Bilirubin NEGATIVE (NEGATIVE) Urine Urobilinogen 0.2 (<2.0) EU/dL Ur Leukocyte Esterase NEGATIVE (NEGATIVE) Urine Opiates Screen NEGATIVE (NEGATIVE) Ur Oxycodone Screen NEGATIVE (NEGATIVE) Urine Methadone Screen NEGATIVE (NEGATIVE) Ur Barbiturates Screen NEGATIVE (NEGATIVE) Ur Phencyclidine Scrn NEGATIVE (NEGATIVE) Ur Amphetamine Screen NEGATIVE (NEGATIVE) U Methamphetamines Scrn NEGATIVE (NEGATIVE) U Benzodiazepines Scrn NEGATIVE (NEGATIVE) U Cocaine Metab Screen NEGATIVE (NEGATIVE) U Marijuana (THC) Screen NEGATIVE (NEGATIVE) 03/14/19 03/15/19 03/15/19 Range/Units 21:41 05:08 05:08 WBC 6.10 (4.0-11.0) K/uL RBC 4.52 (4.50-5.90) M/uL Hgb 13.4 (13.0-17.0) g/dL Hct 41.0 (38.0-50.0) % MCV 90.7 (80.0-98.0) fL MCH 29.6 (27.0-32.0) pg MCHC 32.7 (31.0-37.0) g/dL RDW Std Deviation 44.6 (28.0-62.0) fl RDW Coeff of Darlene 13 (11.0-15.0) % Plt Count 178 (150-400) K/uL MPV 10.60 (7.40-12.00) fL Neut % (Auto) 85.2 H (48.0-80.0) % Lymph % (Auto) 4.9 L (16.0-40.0) % [place] % (Auto) 8.9 (0.0-15.0) % Eos % (Auto) 0.5 (0.0-7.0) % Baso % (Auto) 0.5 (0.0-1.5) % Neut # (Auto) 5.2 (1.4-5.7) K/uL Lymph # (Auto) 0.3 L (0.6-2.4) K/uL [place] # (Auto) 0.5 (0.0-0.8) K/uL Eos # (Auto) 0.0 (0.0-0.7) K/uL Baso # (Auto) 0.0 (0.0-0.1) K/uL Nucleated RBC % 0.0 /100WBC Nucleated RBCs # 0 K/uL Sodium 140 (136-148) mmol/L Potassium 3.9 (3.5-5.1) mmol/L Chloride 108 H (98-107) mmol/L Carbon Dioxide 25.4 (21.0-32.0) mmol/L BUN 14 (7.0-18.0) mg/dL Creatinine 0.9 (0.8-1.3) mg/dL Est Cr Clr Drug Dosing 123.23 mL/min Estimated GFR (MDRD) > 60.0 ml/min Glucose 109 H (74-106) mg/dL Calcium 7.3 L (8.5-10.1) mg/dL Troponin I < 0.050 (0.000-0.056) ng/mL Triglycerides 78 (0-200) mg/dL Cholesterol 127 (50-200) mg/dL LDL Cholesterol, Calc 62 (60-180) mg/dL VLDL Cholesterol 15 (5-55) mg/dL HDL Cholesterol 49 (40-60) mg/dL Cholesterol/HDL Ratio 2.6 L (3.3-6.0) Urine Color Urine Appearance Urine pH (5.0-8.0) Ur Specific [place] (1.001-1.035) Urine Protein (NEGATIVE) mg/dL Urine Glucose (UA) (NEGATIVE) mg/dL Urine Ketones (NEGATIVE) mg/dL Urine Occult Blood (NEGATIVE) Urine Nitrite (NEGATIVE) Urine Bilirubin (NEGATIVE) Urine Urobilinogen (<2.0) EU/dL Ur Leukocyte Esterase (NEGATIVE) Urine Opiates Screen (NEGATIVE) Ur Oxycodone Screen (NEGATIVE) Urine Methadone Screen (NEGATIVE) Ur Barbiturates Screen (NEGATIVE) Ur Phencyclidine Scrn (NEGATIVE) Ur Amphetamine Screen (NEGATIVE) U Methamphetamines Scrn (NEGATIVE) U Benzodiazepines Scrn (NEGATIVE) U Cocaine Metab Screen (NEGATIVE) U Marijuana (THC) Screen (NEGATIVE) Med Orders - Current: Current Medications Acetaminophen (Tylenol) 650 mg PO Q4H PRN PRN Reason: Pain (mild 1-3) Last Admin: 03/14/19 16:35 Dose: 650 mg Enoxaparin Sodium (Lovenox) 40 mg SUBCUT Q24H [facility] Last Admin: 03/15/19 12:04 Dose: 40 mg Pantoprazole Sodium 40 mg/ (Sodium Chloride) 10 mls @ 200 mls/hr IVPUSH Q24H [facility] Last Admin: 03/15/19 12:01 Dose: 200 mls/hr Sodium Chloride (Normal Saline) 1,000 mls @ 150 mls/hr IV ASDIRECTED [facility] Last Admin: 03/15/19 09:39 Dose: 150 mls/hr Ondansetron HCl (Zofran) 4 mg IVPUSH Q4H PRN PRN Reason: Nausea Sodium Chloride (Saline Flush) 10 ml FLUSH ASDIRECTED PRN PRN Reason: Keep Vein Open Last Admin: 03/14/19 09:44 Dose: 10 ml Sodium Chloride (Saline Flush) 2.5 ml FLUSH ASDIRECTED PRN PRN Reason: Keep Vein Open Last Admin: 03/14/19 09:44 Dose: 2.5 ml Discontinued Medications Aspirin (Aspirin) 324 mg PO ONETIME ONE Stop: 03/14/19 09:31 Last Admin: 03/14/19 09:43 Dose: 324 mg Al Hydroxide/Mg Hydroxide 15 (ml/ Lidocaine HCl 5 ml) 0 ml PO ONETIME ONE Stop: 03/14/19 11:46 Last Admin: 03/14/19 12:39 Dose: Not Given Al Hydroxide/Mg Hydroxide 15 (ml/ Lidocaine HCl 5 ml) 0 ml PO ONETIME ONE Stop: 03/14/19 12:06 Last Admin: 03/14/19 12:50 Dose: 20 each Sodium Chloride (Normal Saline) 1,000 mls @ 150 mls/hr IV STAT ONE Stop: 03/14/19 16:09 Last Infusion: 03/14/19 09:45 Dose: 999 mls/hr Sodium Chloride (Normal Saline) 1,000 mls @ 999 mls/hr IV STAT ONE Stop: 03/14/19 10:45 Last Admin: 03/14/19 09:48 Dose: 999 mls/hr Sodium Chloride (Normal Saline) 1,000 mls @ 999 mls/hr IV .Bolus ONE Stop: 03/15/19 09:48 Last Admin: 03/15/19 08:59 Dose: 999 mls/hr Nitroglycerin (Nitrostat) 0.4 mg SL Q5M PRN PRN Reason: Chest Pain Ondansetron HCl (Zofran) 4 mg IVPUSH ONETIME ONE Stop: 03/14/19 09:39 Last Admin: 03/14/19 09:43 Dose: 4 mg Ondansetron HCl (Zofran) Confirm Administered Dose 4 mg .ROUTE .STK-MED ONE Stop: 03/14/19 09:40 Last Admin: 03/14/19 09:44 Dose: Not Given - Exam General: Reports: Alert, Oriented, Cooperative, No Acute Distress Lungs: Reports: Clear to Auscultation, Normal Respiratory Effort Cardiovascular: Reports: Regular Rate, Regular Rhythm GI/Abdominal Exam: Normal Bowel Sounds, Soft, Non-Tender Back Exam: Reports: Normal Inspection Extremities: Normal Inspection, Normal Range of Motion, Non-Tender, No Pedal Edema Neurological: Reports: No New Focal Deficit Psy/Mental Status: Reports: Alert, Normal Affect, Normal Mood <Mayito Hi M - Last Filed: 03/16/19 06:47> Discharge Summary - Hospital Course HPI Initial Comments: I have examined the patient independently of Erika Mendez CNP. I have discussed the case with her. I have reviewed and agree with the examination and plan as outlined by her. Please see orders. - Patient Data Vitals - Most Recent: Last Vital Signs Temp 36.1 C 03/15/19 12:00 Pulse 96 03/15/19 12:00 Resp 22 H 03/15/19 12:00 BP 128/73 03/15/19 12:00 Pulse Ox 97 03/15/19 12:00 Orthostatic Blood Pressure [ 103/65 Standing] Orthostatic Blood Pressure [ 108/65 Supine] Orthostatic Blood Pressure [ 107/67 Sitting] I&O - Last 24 hours: Intake & Output 03/15/19 03/15/19 03/16/19 14:59 22:59 06:59 Intake Total 2947 Output Total 525 Balance 2422 Med Orders - Current: Current Medications Discontinued Medications Acetaminophen (Tylenol) 650 mg PO Q4H PRN PRN Reason: Pain (mild 1-3) Last Admin: 03/14/19 16:35 Dose: 650 mg Aspirin (Aspirin) 324 mg PO ONETIME ONE Stop: 03/14/19 09:31 Last Admin: 03/14/19 09:43 Dose: 324 mg Al Hydroxide/Mg Hydroxide 15 (ml/ Lidocaine HCl 5 ml) 0 ml PO ONETIME ONE Stop: 03/14/19 11:46 Last Admin: 03/14/19 12:39 Dose: Not Given Al Hydroxide/Mg Hydroxide 15 (ml/ Lidocaine HCl 5 ml) 0 ml PO ONETIME ONE Stop: 03/14/19 12:06 Last Admin: 03/14/19 12:50 Dose: 20 each Enoxaparin Sodium (Lovenox) 40 mg SUBCUT Q24H [facility] Last Admin: 03/15/19 12:04 Dose: 40 mg Sodium Chloride (Normal Saline) 1,000 mls @ 150 mls/hr IV STAT ONE Stop: 03/14/19 16:09 Last Infusion: 03/14/19 09:45 Dose: 999 mls/hr Sodium Chloride (Normal Saline) 1,000 mls @ 999 mls/hr IV STAT ONE Stop: 03/14/19 10:45 Last Admin: 03/14/19 09:48 Dose: 999 mls/hr Pantoprazole Sodium 40 mg/ (Sodium Chloride) 10 mls @ 200 mls/hr IVPUSH Q24H [facility] Last Admin: 03/15/19 12:01 Dose: 200 mls/hr Sodium Chloride (Normal Saline) 1,000 mls @ 150 mls/hr IV ASDIRECTED [facility] Last Admin: 03/15/19 09:39 Dose: 150 mls/hr Sodium Chloride (Normal Saline) 1,000 mls @ 999 mls/hr IV .Bolus ONE Stop: 03/15/19 09:48 Last Admin: 03/15/19 08:59 Dose: 999 mls/hr Nitroglycerin (Nitrostat) 0.4 mg SL Q5M PRN PRN Reason: Chest Pain Ondansetron HCl (Zofran) 4 mg IVPUSH ONETIME ONE Stop: 03/14/19 09:39 Last Admin: 03/14/19 09:43 Dose: 4 mg Ondansetron HCl (Zofran) Confirm Administered Dose 4 mg .ROUTE .STK-MED ONE Stop: 03/14/19 09:40 Last Admin: 03/14/19 09:44 Dose: Not Given Ondansetron HCl (Zofran) 4 mg IVPUSH Q4H PRN PRN Reason: Nausea Sodium Chloride (Saline Flush) 10 ml FLUSH ASDIRECTED PRN PRN Reason: Keep Vein Open Last Admin: 03/14/19 09:44 Dose: 10 ml Sodium Chloride (Saline Flush) 2.5 ml FLUSH ASDIRECTED PRN PRN Reason: Keep Vein Open Last Admin: 03/14/19 09:44 Dose: 2.5 ml
== END 2019-03-15 13:15 | disposition home or self-care (01) ==
LOC: MW.ED 09:28 → MW.MS 11:16
PROVIDERS: ADMIT Internal Medicine; ATTEND Internal Medicine
DX: R07.9 Chest pain, unspecified (principal); I95.1 Orthostatic hypotension; R19.7 Diarrhea, unspecified
CPT/HCPCS: 36415; 70450; 71045; 80048; 80053; 80061; 80305; 81003; 83036; 83690; 84443; 84484; 85025; 85652; 93005; 96360; 96361; 96372; 96374; 96375; 96376; 99285; A9270; C9113; G0378; J1650; J2405; J7040; J7050